=== PATIENT | male | born 1995 | race Two or more races ===

== ENCOUNTER 2018-06-04 18:59 | Emergency (ER) | payer OTHER ==
--- NOTE | 2018-06-04 19:50 | EDM.PDOC ---
ED HPI GENERAL MEDICAL PROBLEM - General Chief Complaint: Gastrointestinal Problem Stated Complaint: PAIN IN BOTTOM AREA Time Seen by Provider: 06/04/18 19:33 Source of Information: Reports: Patient History Limitations: Reports: No Limitations - History of Present Illness INITIAL COMMENTS - FREE TEXT/NARRATIVE: Presents with his . He speaks limited Indonesian but his translates. Reports anal pain that increases with sitting walking. He believes he may have a hemorrhoid. He was not sure if he had constipation or not or especially hard stools. He does sit and drive in a pickup most of the day. He is otherwise healthy without chronic medical problems anal area Pain Score (Numeric/FACES): 8 - Related Data Allergies Allergy/AdvReac Type Severity Reaction Status Date / Time seafoods Allergy Swelling Uncoded 06/04/18 19:24 Home Meds: Home Meds Hydrocortisone [Proctocort] 1 applic RC BID #1 tube 06/04/18 [Rx] Past Medical History HEENT History: Reports: None Cardiovascular History: Reports: None Respiratory History: Reports: None Gastrointestinal History: Reports: None Genitourinary History: Reports: None Musculoskeletal History: Reports: None Neurological History: Reports: None Psychiatric History: Reports: None Endocrine/Metabolic History: Reports: None Hematologic History: Reports: None Immunologic History: Reports: None Oncologic (Cancer) History: Reports: None Dermatologic History: Reports: None - Infectious Disease History Infectious Disease History: Reports: None - Past Surgical History Head Surgeries/Procedures: Reports: None Social & Family History - Family History Family Medical History: Noncontributory - Tobacco Use Smoking Status *Q: Current Every Day Smoker Years of Tobacco use: 1 Packs/Tins Daily: 0.5 Tobacco Use Comment: started 4 months ago - Caffeine Use Caffeine Use: Reports: Coffee - Recreational Drug Use Recreational Drug Use: No ED ROS GENERAL - Review of Systems Review Of Systems: ROS reveals no pertinent complaints other than HPI. ED EXAM, GI/ABD - Physical Exam Exam: See Below Exam Limited By: No Limitations General Appearance: Alert, No Apparent Distress Ears: Normal External Exam Nose: Normal Inspection Throat/Mouth: Normal Inspection Head: Atraumatic, Normocephalic Neck: Normal Inspection Respiratory/Chest: No Respiratory Distress, Lungs Clear, Normal Breath Sounds Cardiovascular: Normal Peripheral Pulses, Regular Rate, Rhythm, No Murmur GI/Abdominal Exam: Soft, No Distention Rectal (Males) Exam: Rectal Fissure (Fissure at the 12 o'clock position anal). No: Hemorrhoids Neurological: Alert, Oriented Psychiatric: Normal Affect, Normal Mood Skin Exam: Warm, Dry, Intact, Normal Color, No Rash Lymphatic: No Adenopathy Course - Vital Signs Last Recorded V/S: Last Vital Signs Temp 36.8 C 06/04/18 19:24 Pulse 77 06/04/18 19:24 Resp 18 06/04/18 19:24 BP 124/48 L 06/04/18 19:24 Pulse Ox 98 06/04/18 19:24 Departure - Departure Time of Disposition: 19:47 Disposition: Home, Self-Care 01 Condition: Good Clinical Impression: Anal fissure - Discharge Information Referrals: PCP,None [Primary Care Provider] - Additional Instructions: 1. Drink plenty of fluids during the day 2. Avoid sitting for long periods 3. Must soften up your stools. MiraLAX once daily until stool is soft and then as needed 4. Dulcolax capsules 1 twice daily 5. Proctocort to the perianal area twice daily and after bowel movements
== END 2018-06-04 19:59 | disposition home or self-care (01) ==
LOC: MW.ED 18:59
DX: K60.2 Anal fissure, unspecified (principal); F17.210 Nicotine dependence, cigarettes, uncomplicated; Z91.013 Allergy to seafood
CPT/HCPCS: 99283

== ENCOUNTER 2019-08-05 21:31 | Observation (INO) | payer SELFPAY ==
[2019-08-05] MEDS ORDERED: Ondansetron 4 MG/2 ML SDV ONE (21:34)
--- NOTE | 2019-08-05 22:24 | EDM.PDOC ---
ED HPI GENERAL MEDICAL PROBLEM - General Chief Complaint: Drug or Alcohol Abuse Stated Complaint: EMS Time Seen by Provider: 08/05/19 21:46 Source of Information: Reports: Patient History Limitations: Reports: Language Barrier, Other (translation provided by online service) - History of Present Illness INITIAL COMMENTS - FREE TEXT/NARRATIVE: HISTORY OF PRESENT ILLNESS: Patient is a 23 year old male who is brought in by EMS after suspected narcotic overdose. Patient was found at home apneic and unresponsive. EMS found pulse and administered 2mg of intranasal Narcan with subsequent responsiveness and return of spontaneous respirations. He became hypoxic to the 80s while en route and a second dose of Narcan 2 mg IV was administered and patient awake and alert with normal oxygen saturation. He states he took Oxycodone 30 mg PO which is prescribed to him for chronic back pain. However, officer reports that he took an unknown black pill that he purchased outside of [employer] for $50. He denies any other co-ingestions. Denies alcohol use. Denies suicidal ideation. Denies any medical complaints at this time. Pt turkmen speaking, translation provided by interpretation service. REVIEW OF SYSTEMS: Other than the symptoms associated with the present events, the following is reported with regard to recent health: General: (-) fever. HENT: (-) congestion. Respiratory: (-) cough. Cardiovascular: (-) chest pain. GI: (-) abdominal pain. : (-) urinary complaints. Musculoskeletal: (-) other aches or pains. Endocrine: (-) generalized weakness. Neurological: (-) localized weakness. Skin: (-) rash PAST MEDICAL HISTORY: reviewed as per nursing notes SOCIAL HISTORY: reviewed as per nursing notes, MEDICATIONS: Per nurse's note ALLERGIES: Per nurse's note, reviewed by me PHYSICAL EXAMINATION: GENERALIZED APPEARANCE: well developed, well nourished in no distress VITAL SIGNS: Per nurse's note, reviewed by me SKIN: Warm, dry; (-) cyanosis; (-) rash. HEAD: (-) scalp swelling, (-) tenderness. EYES: (-) conjunctival pallor, (-) scleral icterus. PERRL. EOMI ENMT: (-) stridor; mucous membranes moist. NECK: (-) tenderness, (-) stiffness, no step off or deformity. BACK: no TLS tenderness CHEST AND RESPIRATORY: (-) rales, (-) rhonchi, (-) wheezes; breath sounds equal bilaterally. HEART AND CARDIOVASCULAR: (-) irregularity; (-) murmur, (-) gallop. ABDOMEN AND GI: Soft; (-) tenderness, (-) guarding, (-) rebound, (-) palpable masses, EXTREMITIES: (-) deformity, (-) edema. NEURO AND PSYCH: Alert. oriented x 3. Cranial nerves grossly intact; strength symmetric. sensation intact. 5/5+ Strength. normal speech. DIAGNOSTICS: EKG: sr at 76 bpm. nml axis. no acute st elevation. repolarization. CXR: as read by radiologist, reviewed by myself EMERGENCY DEPARTMENT COURSE AND TREATMENT: Patient's condition remained stable during Emergency Department evaluation. Pt with emesis upon arrival. Given Zofran 4 mg IV. CXR noted. Blood cultures x2 drawn. Given Zosyn after cultures. came into ED and added to history, stating he slumped down onto his buttock and was still mildly responsive, then fell backward onto carpeted floor. She does not suspect there was any trauma. She noticed his lips were blue and he was apneic, she initiated CPR and activated EMS. Pt with mild hypoxia on RA to 92% (97%on 2L) with possible aspiration pneumonia and ingestion of unknown substance and Oxycodone. Case d/w Dr. Garnett who kindly agrees to admit. PLAN AND FOLLOW-UP: admit Treatments FARM MANAGEMENT ADVISER: Reports: IV/IO, Other (see below) Other Treatments FARM MANAGEMENT ADVISER: narcan - Related Data Allergies Allergy/AdvReac Type Severity Reaction Status Date / Time No Known Allergies Allergy Verified 08/05/19 21:58 Home Meds: Home Meds . [No Known Home Meds] 08/05/19 [History] Past Medical History HEENT History: Reports: None Cardiovascular History: Reports: None Respiratory History: Reports: None Gastrointestinal History: Reports: None Genitourinary History: Reports: None Musculoskeletal History: Reports: None Neurological History: Reports: None Psychiatric History: Reports: None Endocrine/Metabolic History: Reports: None Hematologic History: Reports: None Immunologic History: Reports: None Oncologic (Cancer) History: Reports: None Dermatologic History: Reports: None - Infectious Disease History Infectious Disease History: Reports: Chicken Pox - Past Surgical History Head Surgeries/Procedures: Reports: None Social & Family History - Family History Family Medical History: Noncontributory - Caffeine Use Caffeine Use: Reports: Coffee ED ROS GENERAL - Review of Systems Review Of Systems: See Below (see dictation) ED EXAM, GENERAL - Physical Exam Exam: See Below (see dictation) Course - Vital Signs Last Recorded V/S: Last Vital Signs Temp 96.4 F L 08/05/19 21:31 Pulse 76 08/05/19 23:00 Resp 18 08/05/19 23:00 BP 136/80 08/05/19 23:00 Pulse Ox 92 L 08/05/19 23:00 - Orders/Labs/Meds Orders: Active Orders 24 hr Category Date Time Status Cardiac Monitoring [RC] . DIRECTED Care 08/05/19 21:48 Active EKG Documentation Completion [RC] STAT Care 08/05/19 21:46 Active CULTURE BLOOD [BC] Stat Lab 08/05/19 23:08 Received CULTURE BLOOD [BC] Stat Lab 08/05/19 23:17 Received Piperacillin/Tazobactam [Piperacil-Tazobact] 4.5 gm Med 08/05/19 23:04 Active Sodium Chloride 0.9% [Normal Saline] 100 ml IV ONETIME Blood Culture x2 Reflex Set [OM.PC] Stat Oth 08/05/19 23:04 Ordered Medication Orders Piperacillin Sod/Tazobactam (Sod 4.5 gm/ Sodium Chloride) 100 mls @ 100 mls/hr IV ONETIME ONE Stop: 08/06/19 00:03 Last Admin: 08/05/19 23:14 Dose: 100 mls/hr Labs: Laboratory Tests 08/05/19 08/05/19 08/05/19 Range/Units 22:08 22:08 22:08 WBC 15.88 H (4.0-11.0) K/uL RBC 4.48 L (4.50-5.90) M/uL Hgb 13.8 (13.0-17.0) g/dL Hct 40.7 (38.0-50.0) % MCV 90.8 (80.0-98.0) fL MCH 30.8 (27.0-32.0) pg MCHC 33.9 (31.0-37.0) g/dL RDW Std Deviation 41.0 (28.0-62.0) fl RDW Coeff of Kristin 12 (11.0-15.0) % Plt Count 232 (150-400) K/uL MPV 10.30 (7.40-12.00) fL Neut % (Auto) 72.9 (48.0-80.0) % Lymph % (Auto) 19.9 (16.0-40.0) % [place] % (Auto) 5.7 (0.0-15.0) % Eos % (Auto) 1.1 (0.0-7.0) % Baso % (Auto) 0.4 (0.0-1.5) % Neut # (Auto) 11.6 H (1.4-5.7) K/uL Lymph # (Auto) 3.2 H (0.6-2.4) K/uL [place] # (Auto) 0.9 H (0.0-0.8) K/uL Eos # (Auto) 0.2 (0.0-0.7) K/uL Baso # (Auto) 0.1 (0.0-0.1) K/uL Nucleated RBC % 0.0 /100WBC Nucleated RBCs # 0 K/uL Lactate 1.4 (0.20-2.00) mmol/L Sodium 138 (136-148) mmol/L Potassium 3.2 L (3.5-5.1) mmol/L Chloride 102 (98-107) mmol/L Carbon Dioxide 23.1 (21.0-32.0) mmol/L BUN 14 (7.0-18.0) mg/dL Creatinine 1.0 (0.8-1.3) mg/dL Est Cr Clr Drug Dosing TNP Estimated GFR (MDRD) > 60.0 ml/min Glucose 176 H (74-106) mg/dL Calcium 8.1 L (8.5-10.1) mg/dL Salicylates 1.1 (0-20) mg/dL Urine Opiates Screen (NEGATIVE) Ur Oxycodone Screen (NEGATIVE) Urine Methadone Screen (NEGATIVE) Acetaminophen < 2.0 ug/mL Ur Barbiturates Screen (NEGATIVE) Ur Phencyclidine Scrn (NEGATIVE) Ur Amphetamine Screen (NEGATIVE) U Methamphetamines Scrn (NEGATIVE) U Benzodiazepines Scrn (NEGATIVE) U Cocaine Metab Screen (NEGATIVE) U Marijuana (THC) Screen (NEGATIVE) Ethyl Alcohol <3 mg/dL 08/05/19 Range/Units 23:30 WBC (4.0-11.0) K/uL RBC (4.50-5.90) M/uL Hgb (13.0-17.0) g/dL Hct (38.0-50.0) % MCV (80.0-98.0) fL MCH (27.0-32.0) pg MCHC (31.0-37.0) g/dL RDW Std Deviation (28.0-62.0) fl RDW Coeff of Kristin (11.0-15.0) % Plt Count (150-400) K/uL MPV (7.40-12.00) fL Neut % (Auto) (48.0-80.0) % Lymph % (Auto) (16.0-40.0) % [place] % (Auto) (0.0-15.0) % Eos % (Auto) (0.0-7.0) % Baso % (Auto) (0.0-1.5) % Neut # (Auto) (1.4-5.7) K/uL Lymph # (Auto) (0.6-2.4) K/uL [place] # (Auto) (0.0-0.8) K/uL Eos # (Auto) (0.0-0.7) K/uL Baso # (Auto) (0.0-0.1) K/uL Nucleated RBC % /100WBC Nucleated RBCs # K/uL Lactate (0.20-2.00) mmol/L Sodium (136-148) mmol/L Potassium (3.5-5.1) mmol/L Chloride (98-107) mmol/L Carbon Dioxide (21.0-32.0) mmol/L BUN (7.0-18.0) mg/dL Creatinine (0.8-1.3) mg/dL Est Cr Clr Drug Dosing Estimated GFR (MDRD) ml/min Glucose (74-106) mg/dL Calcium (8.5-10.1) mg/dL Salicylates (0-20) mg/dL Urine Opiates Screen NEGATIVE (NEGATIVE) Ur Oxycodone Screen NEGATIVE (NEGATIVE) Urine Methadone Screen NEGATIVE (NEGATIVE) Acetaminophen ug/mL Ur Barbiturates Screen NEGATIVE (NEGATIVE) Ur Phencyclidine Scrn NEGATIVE (NEGATIVE) Ur Amphetamine Screen NEGATIVE (NEGATIVE) U Methamphetamines Scrn NEGATIVE (NEGATIVE) U Benzodiazepines Scrn NEGATIVE (NEGATIVE) U Cocaine Metab Screen NEGATIVE (NEGATIVE) U Marijuana (THC) Screen NEGATIVE (NEGATIVE) Ethyl Alcohol mg/dL Meds: Medications Generic Name Dose Route Start Last Admin Trade Name Freq PRN Reason Stop Dose Admin Piperacillin Sod/Tazobactam 100 mls @ 100 mls/hr 08/05/19 23:04 08/05/19 23: 14 Sod 4.5 gm/ Sodium Chloride IV 08/06/19 00:03 100 mls/hr ONETIME ONE Administration Discontinued Medications Generic Name Dose Route Start Last Admin Trade Name Freq PRN Reason Stop Dose Admin Ondansetron HCl Confirm 08/05/19 21:34 08/05/19 23:12 Zofran Administered 08/05/19 21:35 Not Given Dose 4 mg .ROUTE .STK-MED ONE Ondansetron HCl 4 mg 08/05/19 23:10 08/05/19 23:11 Zofran IVPUSH 08/05/19 23:11 4 mg ONETIME ONE Administration Potassium Chloride 40 meq 08/05/19 22:39 08/05/19 23:08 Klor-Con M20 PO 08/05/19 22:40 40 meq ONETIME ONE Administration Departure - Departure Time of Disposition: 23:53 Disposition: Admitted As Inpatient 66 Condition: Good Clinical Impression: Drug abuse, Aspiration pneumonia, Hypokalemia - Discharge Information Referrals: PCP,None [Primary Care Provider] - Sepsis Event Note - Evaluation Sepsis Screening Result: No Definite Risk - Focused Exam Vital Signs: Vital Signs Temp Pulse Resp BP Pulse Ox 08/05/19 23:00 76 18 136/80 92 L 08/05/19 22:45 84 18 128/82 92 L 08/05/19 22:30 86 18 131/83 92 L 08/05/19 22:15 82 17 123/83 92 L 08/05/19 22:00 89 18 146/92 H 94 L 08/05/19 21:45 88 18 148/95 H 91 L 08/05/19 21:31 96.4 F L 92 19 143/91 H 95 Date Exam was Performed: 08/05/19 Time Exam was Performed: 23:48 - My Orders Last 24 Hours: My Active Orders 08/05/19 21:46 EKG Documentation Completion [RC] STAT 08/05/19 21:48 Cardiac Monitoring [RC] . DIRECTED 08/05/19 23:04 Piperacillin/Tazobactam [Piperacil-Tazobact] 4.5 gm Sodium Chloride 0.9% [ Normal Saline] 100 ml IV ONETIME Blood Culture x2 Reflex Set [OM.PC] Stat 08/05/19 23:08 CULTURE BLOOD [BC] Stat 08/05/19 23:17 CULTURE BLOOD [BC] Stat - Assessment/Plan Last 24 Hours: My Active Orders 08/05/19 21:46 EKG Documentation Completion [RC] STAT 08/05/19 21:48 Cardiac Monitoring [RC] . DIRECTED 08/05/19 23:04 Piperacillin/Tazobactam [Piperacil-Tazobact] 4.5 gm Sodium Chloride 0.9% [ Normal Saline] 100 ml IV ONETIME Blood Culture x2 Reflex Set [OM.PC] Stat 08/05/19 23:08 CULTURE BLOOD [BC] Stat 08/05/19 23:17 CULTURE BLOOD [BC] Stat
--- NOTE | 2019-08-05 22:32 | CR ---
INDICATION: Hypoxia, unknown drug overdose TECHNIQUE: Portable upright AP view of the chest. COMPARISON: None FINDINGS: There is focal airspace opacity in the right lung apex, consistent with infiltrate. The left lung is clear. There is no sizable pleural effusion or pneumothorax. The cardiomediastinal silhouette is normal. The visualized osseous structures are unremarkable. IMPRESSION: Right apical infiltrate, possibly relating to aspiration. Correlate clinically. Dictated by Desiree Lamb MD @ Aug 05 2019 10:31PM Signed by Dr. Desiree Lamb @ Aug 05 2019 10:31PM
[2019-08-05 22:34] LABS: ACETAMINOPHEN < 2.0 ug/mL; BLOOD UREA NITROGEN,BUN 14 mg/dL (7.0-18.0); CARBON DIOXIDE,CO2 23.1 mmol/L (21.0-32.0); CHLORIDE,CL 102 mmol/L (98-107); GLUCOSE RANDOM 176 mg/dL (74-106); POTASSIUM,K 3.2 mmol/L (3.5-5.1); SODIUM,NA 138 mmol/L (136-148)
[2019-08-05] MEDS ORDERED: Potassium Chloride 20 MEQ Tab.ER PO ONE (22:39)
[2019-08-05] MEDS ORDERED: Piperacillin/Tazobactam 4.5 GM in Sodium Chloride 0.9% 100 ML IV ONE (23:04)
[2019-08-05] MEDS ORDERED: Ondansetron 4 MG/2 ML SDV IVPUSH ONE (23:10)
--- NOTE | 2019-08-06 08:36 | PCM.HP.2 ---
H&P History of Present Illness - General Date of Service: 08/06/19 Admit Problem/Dx: Admission Diagnosis/Problem Admission Diagnosis/Problem Overdose of illicit drug - History of Present Illness Initial Comments - Free Text/Narative: 23 yo male who presented to the ED following a narcotic overdose. Patient was found apneic and unresponsive at home and give narcan by EMS. Patient reports chronic knee pain for which he reports he has had multiple x-rays done. At [facility] he was sold 30mg of oxycodone for $50 dollars as he was told it would help with his pain. After taking it he only remembers waking up at the hospital. Patient reports he has not taking narcotics before and does not take anything else for pain. HE does have a an albuterol inhaler for his asthma which he says is controlled. Work up in the ED was significant for WBC of 15, 000 and CXR reporting right upper lung infiltrates. Patient denies any fever or cough. Patient denies any suicidal ideation. chest Pain Score (Numeric/FACES): 2 - Related Data Allergies/Adverse Reactions: Allergies Allergy/AdvReac Type Severity Reaction Status Date / Time No Known Allergies Allergy Verified 08/06/19 01:03 Home Medications: Home Meds Amoxicillin/Potassium Clav [Augmentin 875-125 Tablet] 1 each PO BEDTIME #10 tablet 08/06/19 [Rx] Past Medical History HEENT History: Reports: None Cardiovascular History: Reports: None Respiratory History: Reports: None Gastrointestinal History: Reports: None Genitourinary History: Reports: None Musculoskeletal History: Reports: None Neurological History: Reports: None Psychiatric History: Reports: None Endocrine/Metabolic History: Reports: None Hematologic History: Reports: None Immunologic History: Reports: None Oncologic (Cancer) History: Reports: None Dermatologic History: Reports: None - Infectious Disease History Infectious Disease History: Reports: Chicken Pox - Past Surgical History Head Surgeries/Procedures: Reports: None Social & Family History - Family History Family Medical History: Noncontributory - Tobacco Use Smoking Status *Q: Current Every Day Smoker Years of Tobacco use: 5 Packs/Tins Daily: 10 - Caffeine Use Caffeine Use: Reports: Coffee - Recreational Drug Use Recreational Drug Use: No Drug Use in Last 12 Months: Yes Recreational Drug Type: Reports: Marijuana/Hashish H&P Review of Systems - Review of Systems: Review Of Systems: Comprehensive ROS is negative, except as noted in HPI. Exam - Exam Exam: See Below - Vital Signs Vital Signs: Last Vital Signs Temp 36.6 C 08/06/19 07:33 Pulse 68 08/06/19 07:33 Resp 15 08/06/19 07:33 BP 116/45 L 08/06/19 07:33 Pulse Ox 98 08/06/19 07:33 Weight: 84.187 kg - Exam General: Alert, Oriented HEENT: Mucosa Moist & [place] Lungs: Clear to Auscultation, Normal Respiratory Effort Cardiovascular: Regular Rate, Regular Rhythm GI/Abdominal Exam: Normal Bowel Sounds, Soft, Non-Tender Extremities: Non-Tender, No Pedal Edema Skin: Warm, Dry, Intact - Patient Data Lab Results Last 24 hrs: Laboratory Results - last 24 hr 08/05/19 08/05/19 08/05/19 Range/Units 22:08 22:08 22:08 WBC 15.88 H (4.0-11.0) K/uL RBC 4.48 L (4.50-5.90) M/uL Hgb 13.8 (13.0-17.0) g/dL Hct 40.7 (38.0-50.0) % MCV 90.8 (80.0-98.0) fL MCH 30.8 (27.0-32.0) pg MCHC 33.9 (31.0-37.0) g/dL RDW Std Deviation 41.0 (28.0-62.0) fl RDW Coeff of Kristin 12 (11.0-15.0) % Plt Count 232 (150-400) K/uL MPV 10.30 (7.40-12.00) fL Neut % (Auto) 72.9 (48.0-80.0) % Lymph % (Auto) 19.9 (16.0-40.0) % [place] % (Auto) 5.7 (0.0-15.0) % Eos % (Auto) 1.1 (0.0-7.0) % Baso % (Auto) 0.4 (0.0-1.5) % Neut # (Auto) 11.6 H (1.4-5.7) K/uL Lymph # (Auto) 3.2 H (0.6-2.4) K/uL [place] # (Auto) 0.9 H (0.0-0.8) K/uL Eos # (Auto) 0.2 (0.0-0.7) K/uL Baso # (Auto) 0.1 (0.0-0.1) K/uL Nucleated RBC % 0.0 /100WBC Nucleated RBCs # 0 K/uL Lactate 1.4 (0.20-2.00) mmol/L Sodium 138 (136-148) mmol/L Potassium 3.2 L (3.5-5.1) mmol/L Chloride 102 (98-107) mmol/L Carbon Dioxide 23.1 (21.0-32.0) mmol/L BUN 14 (7.0-18.0) mg/dL Creatinine 1.0 (0.8-1.3) mg/dL Est Cr Clr Drug Dosing TNP Estimated GFR (MDRD) > 60.0 ml/min Glucose 176 H (74-106) mg/dL Calcium 8.1 L (8.5-10.1) mg/dL Salicylates 1.1 (0-20) mg/dL Urine Opiates Screen (NEGATIVE) Ur Oxycodone Screen (NEGATIVE) Urine Methadone Screen (NEGATIVE) Acetaminophen < 2.0 ug/mL Ur Barbiturates Screen (NEGATIVE) Ur Phencyclidine Scrn (NEGATIVE) Ur Amphetamine Screen (NEGATIVE) U Methamphetamines Scrn (NEGATIVE) U Benzodiazepines Scrn (NEGATIVE) U Cocaine Metab Screen (NEGATIVE) U Marijuana (THC) Screen (NEGATIVE) Ethyl Alcohol <3 mg/dL 08/05/19 Range/Units 23:30 WBC (4.0-11.0) K/uL RBC (4.50-5.90) M/uL Hgb (13.0-17.0) g/dL Hct (38.0-50.0) % MCV (80.0-98.0) fL MCH (27.0-32.0) pg MCHC (31.0-37.0) g/dL RDW Std Deviation (28.0-62.0) fl RDW Coeff of Kristin (11.0-15.0) % Plt Count (150-400) K/uL MPV (7.40-12.00) fL Neut % (Auto) (48.0-80.0) % Lymph % (Auto) (16.0-40.0) % [place] % (Auto) (0.0-15.0) % Eos % (Auto) (0.0-7.0) % Baso % (Auto) (0.0-1.5) % Neut # (Auto) (1.4-5.7) K/uL Lymph # (Auto) (0.6-2.4) K/uL [place] # (Auto) (0.0-0.8) K/uL Eos # (Auto) (0.0-0.7) K/uL Baso # (Auto) (0.0-0.1) K/uL Nucleated RBC % /100WBC Nucleated RBCs # K/uL Lactate (0.20-2.00) mmol/L Sodium (136-148) mmol/L Potassium (3.5-5.1) mmol/L Chloride (98-107) mmol/L Carbon Dioxide (21.0-32.0) mmol/L BUN (7.0-18.0) mg/dL Creatinine (0.8-1.3) mg/dL Est Cr Clr Drug Dosing Estimated GFR (MDRD) ml/min Glucose (74-106) mg/dL Calcium (8.5-10.1) mg/dL Salicylates (0-20) mg/dL Urine Opiates Screen NEGATIVE (NEGATIVE) Ur Oxycodone Screen NEGATIVE (NEGATIVE) Urine Methadone Screen NEGATIVE (NEGATIVE) Acetaminophen ug/mL Ur Barbiturates Screen NEGATIVE (NEGATIVE) Ur Phencyclidine Scrn NEGATIVE (NEGATIVE) Ur Amphetamine Screen NEGATIVE (NEGATIVE) U Methamphetamines Scrn NEGATIVE (NEGATIVE) U Benzodiazepines Scrn NEGATIVE (NEGATIVE) U Cocaine Metab Screen NEGATIVE (NEGATIVE) U Marijuana (THC) Screen NEGATIVE (NEGATIVE) Ethyl Alcohol mg/dL Result Diagrams: 08/05/19 22:08 08/05/19 22:08 Sepsis Event Note - Evaluation Sepsis Screening Result: No Definite Risk - Focused Exam Vital Signs: Vital Signs Temp Pulse Resp BP Pulse Ox 08/06/19 07:33 36.6 C 68 15 116/45 L 98 08/06/19 05:12 36.3 C 69 18 94/42 L 96 08/06/19 00:52 36.5 C 88 16 137/72 97 08/06/19 00:39 83 138/77 99 08/06/19 00:03 36.3 C 79 133/79 08/05/19 23:46 75 16 128/76 97 08/05/19 23:31 83 14 143/79 H 98 08/05/19 23:00 76 18 136/80 92 L 08/05/19 22:45 84 18 128/82 92 L 08/05/19 22:30 86 18 131/83 92 L 08/05/19 22:15 82 17 123/83 92 L 08/05/19 22:00 89 18 146/92 H 94 L 08/05/19 21:45 88 18 148/95 H 91 L 08/05/19 21:31 35.8 C L 92 19 143/91 H 95 Date Exam was Performed: 08/06/19 Time Exam was Performed: 10:20 Problem List Initiated/Reviewed/Updated: Yes Orders Last 24hrs: Active Orders 24 hr Category Date Time Status Admission Status [Patient Status] [ADT] Stat ADT 08/05/19 23:54 Active EKG Documentation Completion [RC] STAT Care 08/05/19 21:46 Active Overnight Pulse Oximetry [RC] Click to Edit Care 08/06/19 01:18 Active Ready for Discharge [RC] PER UNIT ROUTINE Care 08/06/19 08:30 Ordered Telemetry Monitoring [Cardiac Monitoring] [RC] Q8H Care 08/06/19 01:20 Active Regular Diet [DIET] Diet 08/06/19 Breakfast Active CULTURE BLOOD [BC] Stat Lab 08/05/19 23:08 Received CULTURE BLOOD [BC] Stat Lab 08/05/19 23:17 Received Blood Culture x2 Reflex Set [OM.PC] Stat Oth 08/05/19 23:04 Ordered Assessment/Plan Comment:: 23 yo male admitted for unintentional narcotic overdose. He is feeling well this morning and is requesting discharge. He was discharged home and instructed on the dangers of illicit substance abuse. He was given a prescription of Augmentin for possible aspiration. A doctorate of chiropractic was used for giving instructions.
== END 2019-08-06 11:00 | disposition home or self-care (01) ==
LOC: MW.ED 21:31 → MW.MS 23:54
PROVIDERS: ADMIT Internal Medicine; ATTEND Internal Medicine
DX: T40.2X1A Poisoning by other opioids, accidental (unintentional), initial encounter (principal); F17.210 Nicotine dependence, cigarettes, uncomplicated; J69.0 Pneumonitis due to inhalation of food and vomit; E87.6 Hypokalemia
CPT/HCPCS: 36415; 71045; 80048; 80305; 80307; 83605; 85025; 87040; 93005; A9270; J2405; J2543; J7050; 99283

== ENCOUNTER 2019-12-16 16:18 | Emergency (ER) | payer SELFPAY ==
[2019-12-16] MEDS ORDERED: Ibuprofen 800 MG Tab PO ONE (16:47)
--- NOTE | 2019-12-16 16:55 | EDM.PDOC ---
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 Patient presents with back pain cough that is productive no fever no shortness of breath no leg pain or leg swelling he says it feels like a prior pneumonia he had he denies any injuries or falls or heavy lifting he says the pain is worse with movement and with cough better when he lies still denies any medical problems except for previous asthma and pneumonia he is a smoker he has not been exposed to anybody else that still there is been no urinary symptoms or fever. Review of systems: As per history of present illness and below otherwise all systems reviewed and negative. Past medical history: As per history of present illness and as reviewed below otherwise noncontributory. Surgical history: As per history of present illness and as reviewed below otherwise noncontributory. Social history: No reported history of drug or alcohol abuse. Family history: As per history of present illness and as reviewed below otherwise noncontributory. Physical exam: HEENT: Atraumatic, normocephalic, pupils reactive, negative for conjunctival pallor or scleral icterus, mucous membranes moist, throat clear, neck supple, nontender, trachea midline. Lungs: Clear to auscultation, breath sounds equal bilaterally, chest nontender. Heart: S1S2, regular, negative for clicks, rubs, or JVD. Abdomen: Soft, nondistended, nontender. Negative for masses or hepatosplenomegaly. Negative for costovertebral tenderness. Pelvis: Stable nontender. Genitourinary: Deferred. Rectal: Deferred. Extremities: Atraumatic, negative for cords or calf pain. Neurovascular unremarkable. Neuro: Awake, alert, oriented. Cranial nerves II through XII unremarkable. Cerebellum unremarkable. Motor and sensory unremarkable throughout. Exam nonfocal. Back: There is tenderness and spasm in the paraspinal musculature at about T10- T12 on the left side Diagnostics: [] Therapeutics: [] Impression: Back pain and cough [] Plan: Chest x-ray and Motrin reassess the patient [] Definitive disposition and diagnosis as appropriate pending reevaluation and review of above. back Pain Score (Numeric/FACES): 7 - Related Data Allergies Allergy/AdvReac Type Severity Reaction Status Date / Time No Known Allergies Allergy Verified 12/16/19 16:43 Home Meds: Home Meds Cyclobenzaprine [Flexeril] 10 mg PO TID #30 tab 12/16/19 [Rx] Naproxen [Naprosyn] 500 mg PO Q12HR #20 tab 12/16/19 [Rx] Past Medical History HEENT History: Reports: None Cardiovascular History: Reports: None Respiratory History: Reports: Asthma Gastrointestinal History: Reports: None Genitourinary History: Reports: None Musculoskeletal History: Reports: None Neurological History: Reports: None Psychiatric History: Reports: None Endocrine/Metabolic History: Reports: None Hematologic History: Reports: None Immunologic History: Reports: None Oncologic (Cancer) History: Reports: None Dermatologic History: Reports: None - Infectious Disease History Infectious Disease History: Reports: Chicken Pox - Past Surgical History Head Surgeries/Procedures: Reports: None Social & Family History - Family History Family Medical History: Noncontributory - Caffeine Use Caffeine Use: Reports: Coffee ED ROS GENERAL - Review of Systems Review Of Systems: See Below ED EXAM, GENERAL - Physical Exam Exam: See Below Course - Vital Signs Text/Narrative:: Verbal chest read and interpreted by me no acute cardiopulmonary pathology is evident. Bony structures are intact. Patient be discharged home on naproxen and Flexeril encouraged to quit smoking follow-up with primary care Last Recorded V/S: Last Vital Signs Temp 36.6 C 12/16/19 16:39 Pulse 68 12/16/19 16:39 Resp 16 12/16/19 16:39 BP 126/57 L 12/16/19 16:39 Pulse Ox 97 12/16/19 16:39 - Orders/Labs/Meds Orders: Active Orders 24 hr Category Date Time Status Chest 1V Frontal [CR] Stat Exams 12/16/19 16:48 Ordered Meds: Medications Discontinued Medications Generic Name Dose Route Start Last Admin Trade Name Freq PRN Reason Stop Dose Admin Ibuprofen 800 mg 12/16/19 16:47 12/16/19 16:57 Motrin PO 12/16/19 16:48 800 mg ONETIME ONE Administration Departure - Departure Time of Disposition: 17:15 Disposition: Home, Self-Care 01 Condition: Good Clinical Impression: Back pain - Discharge Information *PRESCRIPTION DRUG MONITORING PROGRAM REVIEWED*: Not Applicable *COPY OF PRESCRIPTION DRUG MONITORING REPORT IN PATIENT KODY: Not Applicable Instructions: Muscle Strain, [id number] Referrals: PCP,None [Primary Care Provider] - Forms: ED Department Discharge Additional Instructions: The following information is given to patients seen in the emergency department who are being discharged to home. This information is to outline your options for follow-up care. We provide all patients seen in our emergency department with a follow-up referral. The need for follow-up, as well as the timing and circumstances, are variable depending upon the specifics of your emergency department visit. If you don't have a primary care physician on staff, we will provide you with a referral. We always advise you to contact your personal physician following an emergency department visit to inform them of the circumstance of the visit and for follow-up with them and/or the need for any referrals to a consulting specialist. The emergency department will also refer you to a specialist when appropriate. This referral assures that you have the opportunity for follow-up care with a specialist. All of these measure are taken in an effort to provide you with optimal care, which includes your follow-up. Under all circumstances we always encourage you to contact your private physician who remains a resource for coordinating your care. When calling for follow-up care, please make the office aware that this follow-up is from your recent emergency room visit. If for any reason you are refused follow-up, please contact the [facility] Emergency Department at and asked to speak to the emergency department charge nurse. [facility] - Primary Care [address] [place] [id number] [id number] Sepsis Event Note (ED) - Evaluation Sepsis Screening Result: No Definite Risk - Focused Exam Vital Signs: Vital Signs Temp Pulse Resp BP Pulse Ox 12/16/19 16:39 36.6 C 68 16 126/57 L 97 - My Orders Last 24 Hours: My Active Orders 12/16/19 16:48 Chest 1V Frontal [CR] Stat - Assessment/Plan Last 24 Hours: My Active Orders 12/16/19 16:48 Chest 1V Frontal [CR] Stat
--- NOTE | 2019-12-16 17:37 | CR ---
Chest: PA view of the chest was obtained. Comparison: Prior chest x-ray of 08/05/19. Heart size and mediastinum are normal. Lungs are clear with no acute parenchymal change. Bony structures are grossly intact. Impression: 1. Nothing acute is seen on PA chest x-ray. Diagnostic code #1 This report was dictated in MDT
== END 2019-12-16 17:25 | disposition home or self-care (01) ==
LOC: MW.ED 16:18
DX: M54.9 Dorsalgia, unspecified (principal); R05 Cough; J45.909 Unspecified asthma, uncomplicated; F17.200 Nicotine dependence, unspecified, uncomplicated
CPT/HCPCS: 71045; 99283; A9270

== ENCOUNTER 2020-11-06 00:41 | Emergency (ER) | payer SELFPAY ==
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
== END 2020-11-06 01:15 | disposition home or self-care (01) ==
LOC: MW.ED 00:41
DX: S09.93XA Unspecified injury of face, initial encounter (principal); W22.8XXA Striking against or struck by other objects, initial encounter
CPT/HCPCS: 99283

== ENCOUNTER 2021-03-27 00:14 | Emergency (ER) | payer SELFPAY ==
[2021-03-27] MEDS ORDERED: HYDROmorphone 1 MG/ML Syringe ONE ×3 (00:16→01:43)
[2021-03-27] MEDS ORDERED: HYDROmorphone 1 MG/ML Syringe IVPUSH ONE ×4 (00:28→02:14)
[2021-03-27] MEDS ORDERED: Diphtheria,Pertussis(Acell),Tetanus Vaccine 0.5 ML Syringe ONE (00:28)
[2021-03-27] MEDS ORDERED: LORazepam 2 MG/ML SDV IVPUSH ONE (00:50)
[2021-03-27] MEDS ORDERED: LORazepam 2 MG/ML SDV ONE (00:51)
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
[2021-03-27 01:00] LABS: BLOOD UREA NITROGEN,BUN 20 mg/dL (7.0-18.0); CARBON DIOXIDE,CO2 21.3 mmol/L (21.0-32.0); CHLORIDE,CL 103 mmol/L (98-107); GLUCOSE RANDOM 127 mg/dL (74-106); POTASSIUM,K 3.3 mmol/L (3.5-5.1); SODIUM,NA 141 mmol/L (136-148)
[2021-03-27] MEDS ORDERED: HYDROmorphone 2 MG/ML Syringe IVPUSH ONE (01:42)
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
[2021-03-27] MEDS ORDERED: Iopamidol 755 MG/ML 500 ML Multipack Bottle IVPUSH ONE (02:08)
[2021-03-27] MEDS ORDERED: fentaNYL 50 MCG/ML SDV IVPUSH ONE ×2 (02:41→04:13)
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
== END 2021-03-27 04:25 ==
LOC: MW.ED 00:14
DX: S82.251A Displaced comminuted fracture of shaft of right tibia, initial encounter for closed fracture (principal); S82.451A Displaced comminuted fracture of shaft of right fibula, initial encounter for closed fracture; T82.898A Other specified complication of vascular prosthetic devices, implants and grafts, initial encounter; Z23 Encounter for immunization; Z20.822 Contact with and (suspected) exposure to COVID-19; W22.09XA Striking against other stationary object, initial encounter
CPT/HCPCS: 27788; 36415; 73590; 73706; 80053; 80307; 85025; 85610; 85730; 87635; 90471; 90715; 96374; 96375; 96376; 99291; 99292; G0390; J1170; J2060; J3010; Q9967; U0002

== ENCOUNTER 2021-04-03 18:46 | Emergency (ER) | payer SELFPAY ==
[2021-04-03] MEDS ORDERED: Ondansetron 4 MG/2 ML SDV IVPUSH ONE (19:18)
[2021-04-03] MEDS ORDERED: Morphine 2 MG/ML SYRINGE IVPUSH ONE (19:18)
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
--- NOTE | 2021-04-03 21:15 | CR ---
Indication: Pain following surgery Technique: Two views the right tibia fibula Comparison: X-rays 03/27/2021 Findings: Postsurgical fixation with intramedullary jodie transfixing a severely comminuted mid tibial fracture. Comminuted displaced fibular fracture multiple radiopaque fragments within the surrounding soft tissues. No hardware fracture. Dictated by Gely Moran MD @ 04/03/2021 9:14:30 PM (Electronically Signed)
== END 2021-04-03 21:45 | disposition home or self-care (01) ==
LOC: MW.ED 18:46
DX: G89.18 Other acute postprocedural pain (principal); M79.671 Pain in right foot
CPT/HCPCS: 73590; 96374; 96375; 99283; J2270; J2405

== ENCOUNTER 2023-01-28 18:49 | Emergency (ER) | payer SELFPAY ==
[2023-01-28] MEDS ORDERED: Ondansetron 4 MG/2 ML SDV IVPUSH ONE (19:35)
[2023-01-28] MEDS ORDERED: Sodium Chloride 0.9% 1,000 ML IV ONE (19:35)
[2023-01-28 20:22] LABS: BASOPHILS ABSOLUTE AUTO 0.03 K/uL (0.00-0.20); BASOPHILS PERCENT AUTO 0.3 % (0.0-1.0); HEMATOCRIT 39.8 % (42.0-52.0); IMMATURE GRAN ABSOLUTE AUTO 0.03 K/uL (0.00-0.05); IMMATURE GRAN PERCENT AUTO 0.3 % (0.0-0.4); LYMPHOCYTES ABSOLUTE AUTO 1.44 K/uL (1.00-4.80); LYMPHOCYTES PERCENT AUTO 12.5 % (24.0-44.0); MEAN CORPUSCULAR HEMOGLOBIN 30.4 pg (28.0-32.0); MEAN CORPUSCULAR HGB CONC 35.2 g/dL (32.0-36.0); MEAN CORPUSCULAR VOLUME 86.5 fL (83.0-99.0); MONOCYTES ABSOLUTE AUTO 0.56 K/uL (0.00-0.80); MONOCYTES PERCENT AUTO 4.9 % (0.0-8.0); NEUTROPHILS ABSOLUTE AUTO 9.4 K/uL (1.8-7.7); PLATELET COUNT,PLT 388 K/uL (150-400)
[2023-01-28 20:43] LABS: A/G RATIO 1.1 (0.9-1.6); ACETAMINOPHEN <2.0 ug/mL; ALBUMIN 4.4 g/dL (3.4-5.0); BILIRUBIN TOTAL 0.5 mg/dL (0.2-1.0); CALCIUM 9.6 mg/dL (8.5-10.1); CARBON DIOXIDE,CO2 25.2 mmol/L (21.0-32.0); CREATININE 0.9 mg/dL (0.8-1.3); EST CRCL DRUG DOSING (CG) 122.2 mL/min; PROTEIN TOTAL,TP 8.3 g/dL (6.4-8.2); SALICYLATE 3.6 mg/dL (0.0-20.0)
[2023-01-28 20:46] LABS: LACTIC ACID 1.3 mmol/L (0.4-2.0)
[2023-01-28] MEDS ORDERED: Promethazine 25 MG/ML SDV IM ONE (21:24)
[2023-01-28 21:46] LABS: CORONAVIRUS COVID-19 NAA NEGATIVE (NEGATIVE); INFLUENZA A NAA NEGATIVE (NEGATIVE); INFLUENZA B NAA NEGATIVE (NEGATIVE)
== END 2023-01-28 22:02 | disposition home or self-care (01) ==
LOC: MW.ED 18:49
DX: K52.9 Noninfective gastroenteritis and colitis, unspecified (principal); F11.23 Opioid dependence with withdrawal; J45.909 Unspecified asthma, uncomplicated; Z20.822 Contact with and (suspected) exposure to COVID-19
CPT/HCPCS: 0240U; 36415; 80053; 80143; 80179; 83605; 83690; 85025; 93005; 96361; 96372; 96374; 99284; J2405; J2550; J7030; 93010

== ENCOUNTER 2023-03-07 14:15 | Emergency (ER) | payer SELFPAY | END 2023-03-07 15:26 | LOC: MW.ED 14:15 | DX: Z02.89 Encounter for other administrative examinations (principal); F17.210 Nicotine dependence, cigarettes, uncomplicated | CPT/HCPCS: 99281; 99283 ==